=== PATIENT | male | born 1960 | race Asian ===

== ENCOUNTER 2017-05-23 07:45 | Day surgery (SDC) | payer MEDICARE, OTHER ==
[~2017-05-23] VITALS: Ht 167.6 cm; Wt 72.9 kg
[2017-05-23 08:47] VITALS: Ht 167.6 cm; Wt 72.9 kg
[2017-05-23] MEDS ORDERED: METO-429 PO (08:55)
[2017-05-23] MEDS ORDERED: ASPI-664 PO (08:55)
[2017-05-23] MEDS ORDERED: LISI20TA11 PO (08:55)
[2017-05-23] MEDS ORDERED: SIMV20TA PO (08:55)
[2017-05-23] MEDS ORDERED: LANT3I SC (08:55)
[2017-05-23] MEDS ORDERED: SITA1TAB5 PO (08:55)
[2017-05-23] MEDS ORDERED: DULA0.75 SQ (08:55)
[2017-05-23 09:21] VITALS: BP 135/78; PULSE 80; RESP 24
[2017-05-23] MEDS ORDERED: PROPOFOL 60 ML ONE (09:29)
[2017-05-23] MEDS ORDERED: LIDOCAINE 2% (SDV) 5 ML INJ ONE (09:29)
--- NOTE | 2017-05-23 10:03 | OPPN ---
Date/Time of Note Date/Time of Note DATE: 05/23/17 TIME: 10:02 Operative Report Preoperative Diagnosis Screening Postoperative Diagnosis 3 small colon polyps removed Operation/Procedure Performed Colonoscopy and biopsy Provider: GILDA BLANTON MD Anesthesia Type: MAC Estimated blood loss: none Transfusion Required: no Specimens Colon polyps Grafts/Implants: none Complications: no GILDA BLANTON MD May 23, 2017 10:03
--- NOTE | 2017-05-23 10:48 | GILP ---
DATE OF PROCEDURE: 05/23/2017 PROCEDURE PERFORMED: Colonoscopy and biopsy. SURGEON: Benito Valdez MD. PREOPERATIVE DIAGNOSIS: Screening colonoscopy. POSTOPERATIVE DIAGNOSES: 1. Colonoscopy all the way to the cecum. 2. Three small colon polyps were removed using the biopsy forceps. 3. Internal hemorrhoids. INDICATION: Mr. Otf Conway is a 56-year-old male patient who was scheduled for screening colonoscopy. The procedure and possible complications were well explained to the patient. He understood and consented to the procedure. DESCRIPTION OF PROCEDURE: Under influence of anesthesia, the colonoscope was carefully introduced in the rectum, and under direct vision, it was advanced all the way to the cecum. FINDINGS: The patient had 3 small colon polyps, and they were removed using the biopsy forceps. He was noted to have internal hemorrhoids. He tolerated the procedure very well. There was no complication from the procedure. At the end of procedure, he was awake with stable vital signs. He was discharged home in the care of his family. IMPRESSION: Please see postop diagnoses. PLAN: 1. Await histopathology report. 2. Next screening colonoscopy in 5 years. Dictated By: MD YESIKA Loyd/jose/angel /Document#: [id number]
== END 2017-05-23 11:19 | disposition home or self-care (01) ==
LOC: GIL 07:45
PROVIDERS: ATTEND Internal Medicine Gastroenterology
DX: Z12.11 Encounter for screening for malignant neoplasm of colon (principal); K63.5 Polyp of colon; I10 Essential (primary) hypertension; E11.9 Type 2 diabetes mellitus without complications; I25.10 Atherosclerotic heart disease of native coronary artery without angina pectoris; E78.5 Hyperlipidemia, unspecified; E66.9 Obesity, unspecified; Z68.25 Body mass index [BMI] 25.0-25.9, adult; K64.8 Other hemorrhoids
CPT/HCPCS: 82962; 88305